=== PATIENT | male | born 1995 | race Caucasian/White ===

== ENCOUNTER 2019-08-21 06:08 | Day surgery (SDC) | payer OTHER ==
[2019-08-21] MEDS ORDERED: DEXAMETHASONE 4 MG/ML VIAL IVP ONE (06:09)
[2019-08-21] MEDS ORDERED: ONDANSETRON 4 MG/2 ML VIAL IVP ONE (06:09)
[2019-08-21] MEDS ORDERED: PROPOFOL 200 MG/20 ML VIAL IVP ONE (06:09)
[2019-08-21] MEDS ORDERED: LIDOCAINE-MPF 2% 5 ML VIAL IM ONE (06:09)
[2019-08-21] MEDS ORDERED: ACETAMINOPHEN 1,000 MG/100 ML 100 ML IV ONE (06:09)
[2019-08-21] MEDS ORDERED: KETOROLAC 30 MG/ML VIAL IVP ONE (06:09)
[2019-08-21] MEDS ORDERED: MIDAZOLAM 2 MG/2 ML VIAL IVP ONE (06:09)
[2019-08-21] MEDS ORDERED: fentaNYL 100 MCG/2 ML VIAL IVP ONE (06:09)
[2019-08-21] MEDS ORDERED: ROCURONIUM 50 MG/5 ML VIAL IVP ONE (06:09)
[2019-08-21] MEDS ORDERED: LACTATED RINGERS 1,000 ML IV ONE (06:16)
[2019-08-21] MEDS ORDERED: cefTRIAXone 2 GM VIAL ONE (06:44)
--- NOTE | 2019-08-21 07:15 | ANESTHESIA ---
Pre-Anesthesia VS, & Labs - Diagnosis Right shoulder instability - Procedure Right shoulder scope Vital Signs: Temp Pulse Resp BP Pulse Ox 36.2 C L 78 12 122/77 100 08/21/19 06:16 08/21/19 06:16 08/21/19 06:16 08/21/19 06:16 08/21/19 06:16 Height 6 ft 5 in Weight (kg) 78 kg - NPO >8 hours - Lab Results Lab results reviewed: No Home Medications and Allergies Home Medications: Ambulatory Orders Multivitamin [Multiple Vitamins] 1 each PO DAILY 08/19/19 Multivitamin [Multiple Vitamins] 1 each PO DAILY 08/19/19 Allergies/Adverse Reactions: Allergies Allergy/AdvReac Type Severity Reaction Status Date / Time No Known Drug Allergies Allergy Verified 08/19/19 09:47 Anes History & Medical History - Anesthetic History Anesthesia Complications: reports: No previous complications Family history of Anesthesia Complications: Denies Family history of Malignant Hyperthermia: Denies - Medical History Cardiovascular: reports: None Pulmonary: reports: None Gastrointestinal: reports: None Urinary: reports: None Neuro: reports: None Musculoskeletal: reports: None Endocrine/Autoimmune: reports: None Blood Disorders: reports: None Skin: reports: Eczema Smoking Status: Never smoker Psychosocial: reports: No issues indicated Exam General: Alert Dental: WNL Mouth Opening: Greater than 4 Fingerbreadths Neck Mobility: Normal Mallampati classification: I Thyromental Distance: greater than 6 cm Respiratory: Lungs clear Cardiovascular: Regular rate Mental/Cognitive Status: Alert/Oriented X3 Cognitive Status: Within normal limits Plan Anesthesia Type: General, Interscalene Block Consent for Procedure(s) Verified and Reviewed: Yes Code Status: Attempt Resuscitation ASA classification: 1-Healthy patient Is this case an emergency?: No
[2019-08-21] MEDS ORDERED: BUPIVACAINE 0.5%-EPI 1:200000 PF 10 ML VIAL ONE (07:23)
[2019-08-21] MEDS ORDERED: BUPIVACAINE 0.25% PF 10 ML VIAL ONE (07:24)
[2019-08-21] MEDS ORDERED: EPINEPHrine 1 MG/ML AMP ONE (07:24)
[2019-08-21] MEDS ORDERED: BUPIVACAINE 0.5% PF 10 ML VIAL IM ONE (09:04)
[2019-08-21] MEDS ORDERED: oxyCODONE 5 MG TABLET PO PRN (13:00)
[2019-08-21] MEDS ORDERED: ONDANSETRON 4 MG/2 ML VIAL IVP PRN (13:00)
--- NOTE | 2019-08-21 13:23 | OPERATIVE REPORT ---
Operative Report - Other Other Information/Narrative: Date of Surgery: 21 August 2019 Pre-Op Diagnosis: Right shoulder instability. Inferior and posterior humeral avulsion of the glenohumeral ligaments Procedure: Arthroscopic repair of an inferior and posterior humeral avulsion of the glenohumeral ligaments Postop Diagnosis: Same as above, add grade 1 SLAP tear Primary Surgeon: Dave Zimmer Secondary Surgeon: Kenan Love Complications: None EBL: 25 IMPLANTS: 5.5 mm corkscrew double loaded from Arthrex Arthrex #2 FiberWire POSTOPERATIVE PLAN: 0-2 weeks-Sling at all times. Pendulum exercises 5 times per day. 2-6 weeks-Passive range of motion with the following limits: FF to 90 with the palm up, ER unlimited, no internal rotation past neutral, abduction to 90 6-12 weeks-Active range of motion in all planes without limitation. Isometric rotator cuff strengthening is allowed 12-16 weeks-Gradually increase strengthening 16 weeks and beyond-Introduce dynamic activities EXAMINATION UNDER ANESTHESIA: ROM: Full Anterior load and shift: Grade 1-2 Posterior load and shift: Grade 2 Inferior sulcus: Mild sulcus ARTHROSCOPIC FINDINGS: Rotator interval: Intact Biceps tendon & SLAP: Grade 1 SLAP tear was debrided Subscapularis: Intact Rotator Cuff: Intact HAGL: Posterior and inferior tear was seen, it appeared chronic and had some wispy overlying scar tissue. Labrum: Small cracks were seen in the anterior and posterior labrum but they did not probe deep and were stable Glenoid Cartilage: Intact Humeral Head Cartilage: Intact. Once balance suspension had been placed to the humeral head subluxated posteriorly. INDICATION FOR SURGERY: 23-year-old male had an instability episode while skiing 3 years ago. He has had intermittent instability since that time which was posterior and inferior in nature. Examination and MRI was consistent with a posterior and inferior reverse haggle lesion. Nonoperative managment failed to resolve symptoms. The risks, benefits, and alternatives were discussed. Risks included pain, bleeding, infection, damage to nearby structures, lack of symptom relief, implant complications, stiffness, need for further surgeries, DVT, PE, stroke, and even . He signed a written consent form. PROCEDURE IN DETAIL: The patient was met in the preoperative holding on the day of the procedure. Operative extremity was signed. Consent was verified. He desired to proceed. Regional anesthesia was obtained in the preoperative area. They were brought to the operating room and surrendered to anesthesia. Once general anesthesia was obtained they were placed in the lateral decubitus position with the operative side up. An axillary roll was placed and all bony prominences were well-padded. They were then prepped and draped in the standard sterile fashion. A surgical timeout was held to confirm the patient procedure, identity, procedure, laterality, allergies, images, and antibiotics. All were in agreement we proceeded. Balanced suspension was applied and a standard diagnostic arthroscopy was performed utilizing posterior and anterior superior portal sites. The posterior portal was placed more medial to allow for potential work on the humerus. The anterior superior portal site was created under direct visualization. The findings of the diagnostic arthroscopy can be found above. The balance suspension caused the humeral head to translate posteriorly making visualization and work from the posterior somewhat challenging. A mid glenoid portal was then created under direct visualization bordering the subscapularis tendon. I then used a combination of high and low angled elevators to develop the RHAGL lesion and from surrounding scar tissue and the underlying axillary neurovascular bundle. I was careful throughout the procedure to not probing the area of the axillary nerve and to only come through the capsule and not go deep when passing sutures. A posterior, inferior cannula was then placed and remained outside of the capsule. I then used a 70 degrees scope to fully visualize the tear. The humeral head was shaved down to a bed of bleeding bone. A shaver was used to remove all nonstructural tissue. Suction was very careful because of the location of the axillary nerve. The corkscrew was placed centrally in the lesion just off the articular cartilage. It was double loaded. I then used an angled [employer] to pass the sutures through the capsule with good spread in a horizontal mattress configura tion. I then tied to the sutures with a modified rotor backed it with 4 reverse half hitches alternating posts from posterior to anterior. As the sutures came down the capsule was seen to reduce nicely onto the humeral neck and the overall joint space was narrowed. I could no longer see the posterior inferior cannula so it was removed. The sutures were cut with tails. A small side to side tear remained between the most anterior portion of the lesion in the intact anterior capsule. I then used a suture lasso and passed it through the posterior capsule and the anterior capsule and placed a #2 FiberWire. I then tied to this from the front utilizing a sweetheart not with 5 reverse half hitches with alternating posts. Sutures were then cut. Balance suspension was released and the humeral head was now centered nicely within the glenoid. I probed the repair extensively and found it to be intact. I re-probed the labrum and found there to be no unstable tears. Tension had been restored to the posterior and inferior capsule very nicely. Final images were taken and all instruments were removed from the shoulder. The portal sites were then closed with 3-0 Monocryl buried. Mastisol and Steri-Strips were applied. A sterile dressing and a sling was applied. He was awakened and transferred to the recovery room.
[2019-08-21 14:14] VITALS: BP 131/89
== END 2019-08-21 06:09 | disposition home or self-care (01) ==
LOC: SDS 06:08
PROVIDERS: ATTEND Orthopaedic Surgery
PROC: 0RQJ4ZZ Repair Right Shoulder Joint, Percutaneous Endoscopic Approach (ICD-10-PCS; principal; 2019-08-21 07:30)
PROC: 0MM14ZZ Reattachment of Right Shoulder Bursa and Ligament, Percutaneous Endoscopic Approach (ICD-10-PCS; 2019-08-21 07:30)
DX: M25.311 Other instability, right shoulder (principal); S43.431A Superior glenoid labrum lesion of right shoulder, initial encounter; F17.220 Nicotine dependence, chewing tobacco, uncomplicated; X58.XXXA Exposure to other specified factors, initial encounter
CPT/HCPCS: 23455; J7120